=== PATIENT | male | born 1950 | race Caucasian/White ===

== ENCOUNTER 2016-09-28 07:28 | Inpatient (IN) | payer MEDICARE, OTHER ==
[~2016-09-28] VITALS: Ht 175.3 cm; Wt 93.8 kg
[2016-09-28 08:15] LABS: HEMATOCRIT 39.2 % (42.0-52.0); HEMOGLOBIN 14.1 g/dl (13.5-18.0); MEAN CELL VOLUME 91 fl (80.0-100.0); MEAN CORPUSCULAR HEMOGLOBIN 33 pg (27.0-31.0); MEAN CORPUSCULAR HGB CONC 36 g/dl (33.0-37.0); MEAN PLATELET VOLUME 9.6 fl (7.4-10.4); PLATELET COUNT 167 K/mm3 (130-400); RED BLOOD COUNT 4.32 M/mm3 (4.20-5.60); WHITE BLOOD COUNT 4.8 K/mm3 (4.8-10.8)
[2016-09-28 08:19] LABS: ADD PATHOLOGY DIFF REVIEW NO
[2016-09-28 08:21] LABS: PH 8 (5-8); SQUAMOUS EPITHELIAL None Seen /hpf; URINE APPEARANCE Clear; URINE BACTERIA None Seen /hpf; URINE BILIRUBIN Negative (NEGATIVE); URINE BLOOD Negative (NEGATIVE); URINE COLOR Yellow; URINE GLUCOSE Negative (NEGATIVE); URINE KETONE 1+ (NEGATIVE); URINE RBC 0-2 /hpf; URINE UROBILINOGEN Negative (NEGATIVE); URINE WBC 0-2 /hpf
[2016-09-28 08:29] LABS: INFLUENZA B NEGATIVE
[2016-09-28 08:31] LABS: ADJUSTED CALCIUM 9.1 mg/dL (8.4-10.2); ALBUMIN 3.8 gm/dL (3.5-5.0); BILIRUBIN,TOTAL 1.7 mg/dL (0.0-1.0); C-REACTIVE PROTEIN 2.3 mg/dL (0.0-0.9); CALCIUM 8.9 mg/dL (8.4-10.2); CREATININE, serum 0.69 mg/dL (0.66-1.25)
[2016-09-28 08:43] LABS: TROPONIN-I 0.061 ng/mL (0.000-0.034)
[2016-09-28 08:44] LABS: POTASSIUM 2.5 mmol/L (3.4-5.0)
[2016-09-28 08:52] LABS: BAND 2 % (0-10); NEUTROPHILS 60 % (42.0-75.2); TOTAL CELLS COUNTED 100
[2016-09-28] MEDS ORDERED: TOPROL XL 50MG50 MG PO (09:16)
[2016-09-28] MEDS ORDERED: LIPITOR 80MG80 MG PO (09:16)
[2016-09-28] MEDS ORDERED: ZYBAN150 M1 (09:17)
[2016-09-28] MEDS ORDERED: LASIX 40MG TABL40 MG PO (09:18)
[2016-09-28] MEDS ORDERED: ZESTRIL2.5 MG PO (09:19)
[2016-09-28] MEDS ORDERED: KLOR-CON M2020 MEQ PO (09:19)
[2016-09-28] MEDS ORDERED: PLAVIX 75MG TAB75 MG PO (09:19)
[2016-09-28] MEDS ORDERED: NEURONTIN300 MG/CAP PO (09:20)
[2016-09-28] MEDS ORDERED: OXYCONTIN 80MG80 MG PO (09:20)
[2016-09-28] MEDS ORDERED: DESYREL DIVIDO150 M1 PO (09:20)
[2016-09-28] MEDS ORDERED: DAZIDOX20 MG PO (09:20)
[2016-09-28] MEDS ORDERED: ASPIRIN E.C. 8181 MG PO (09:21)
[2016-09-28] MEDS ORDERED: COMPLETE SENIOR1 TA1 PO (09:21)
[2016-09-28 10:52] VITALS: BP 174/86; PULSE 72; TEMP 98.3
[2016-09-28 17:18] VITALS: BP 158/78; PULSE 88; TEMP 98.8
[2016-09-28 19:41] LABS: POTASSIUM 2.5 mmol/L (3.4-5.0)
[2016-09-28 19:45] VITALS: BP 144/82; PULSE 81; TEMP 98.8
[2016-09-28 19:53] LABS: THYROID STIMULATING HORMONE 0.234 uIU/mL (0.465-4.680)
[2016-09-29 00:43] VITALS: BP 147/75; PULSE 71; TEMP 98.1
[2016-09-29 03:37] VITALS: BP 154/85; PULSE 69; TEMP 97.8
[2016-09-29 07:06] LABS: PH 7 (5-8); SQUAMOUS EPITHELIAL None Seen /hpf; URINE APPEARANCE Clear; URINE BACTERIA Rare /hpf; URINE BILIRUBIN Negative (NEGATIVE); URINE BLOOD Negative (NEGATIVE); URINE COLOR Yellow; URINE GLUCOSE Negative (NEGATIVE); URINE KETONE 2+ (NEGATIVE); URINE RBC 0-2 /hpf; URINE UROBILINOGEN >=4.0 mg/dL (NEGATIVE); URINE WBC 0-2 /hpf
[2016-09-29 07:54] VITALS: BP 167/87; PULSE 73; TEMP 98.4
[2016-09-29 11:07] VITALS: BP 125/65; PULSE 62; TEMP 97.8
[2016-09-29 11:15] LABS: ADJUSTED CALCIUM 8.9 mg/dL (8.4-10.2); ALBUMIN 3.7 gm/dL (3.5-5.0); BILIRUBIN,TOTAL 1.6 mg/dL (0.0-1.0); CALCIUM 8.7 mg/dL (8.4-10.2); CREATININE, serum 0.64 mg/dL (0.66-1.25); TOTAL PROTEIN 6.6 gm/dL (6.4-8.2)
[2016-09-29 11:26] LABS: POTASSIUM 2.7 mmol/L (3.4-5.0)
[2016-09-29 11:45] LABS: MAGNESIUM 1.8 mg/dL (1.6-2.3)
[2016-09-29 16:27] VITALS: BP 165/88; PULSE 75; TEMP 98.4
[2016-09-29 19:56] VITALS: BP 144/70; PULSE 65; TEMP 98.7
[2016-09-30 00:40] VITALS: BP 142/68; PULSE 58; TEMP 98.4
[2016-09-30 04:23] VITALS: BP 149/72; PULSE 58; TEMP 98.7
[2016-09-30 08:32] VITALS: BP 144/65; PULSE 59; TEMP 98
[2016-09-30 09:25] LABS: BASO % 0.4 % (0.0-2.0); EOS # 0.1 (0.0-0.7); EOS % 1.1 % (0-4.0); GRAN # 3.2 (1.4-6.5); GRAN % 55.9 % (42.2-75.2); HEMATOCRIT 38.7 % (42.0-52.0); HEMOGLOBIN 13.7 g/dl (13.5-18.0); LYMPH # 1.8 (1.2-3.4); LYMPH % 31.6 % (20.0-51.0); MEAN CELL VOLUME 92 fl (80.0-100.0); MEAN CORPUSCULAR HEMOGLOBIN 33 pg (27.0-31.0); MEAN CORPUSCULAR HGB CONC 35 g/dl (33.0-37.0); MEAN PLATELET VOLUME 9.3 fl (7.4-10.4); MONO # 0.6 (0.1-0.6); MONO % 9.8 % (1.7-9.3); PLATELET COUNT 183 K/mm3 (130-400); RED BLOOD COUNT 4.22 M/mm3 (4.20-5.60); REDCELL DISTRIBUTION WIDTH-CV 12.9 % (11.5-14.5); WHITE BLOOD COUNT 5.7 K/mm3 (4.8-10.8)
[2016-09-30 09:47] LABS: CALCIUM 8.9 mg/dL (8.4-10.2); CREATININE, serum 0.69 mg/dL (0.66-1.25); POTASSIUM 3.2 mmol/L (3.4-5.0)
[2016-09-30 11:21] VITALS: BP 140/60; PULSE 58; TEMP 99
[2016-09-30 12:51] LABS: ADJUSTED CALCIUM 9.4 mg/dL (8.4-10.2); ALBUMIN 3.5 gm/dL (3.5-5.0); BILIRUBIN,TOTAL 1.8 mg/dL (0.0-1.0); CREATININE, serum 0.7 mg/dL (0.66-1.25); POTASSIUM 3.3 mmol/L (3.4-5.0); TOTAL PROTEIN 6.4 gm/dL (6.4-8.2)
[2016-09-30 15:46] VITALS: BP 156/69; PULSE 74; TEMP 98.9
[2016-09-30 20:18] VITALS: BP 169/75; PULSE 60; TEMP 98.5
[2016-10-01 00:01] VITALS: BP 169/84; PULSE 59; TEMP 98.7
[2016-10-01 05:17] VITALS: BP 145/55; PULSE 78; TEMP 98.8
[2016-10-01 09:41] VITALS: BP 147/72; PULSE 68; TEMP 97.4
[2016-10-01 10:00] LABS: BASO % 0.4 % (0.0-2.0); EOS # 0.1 (0.0-0.7); EOS % 1.4 % (0-4.0); GRAN # 3.4 (1.4-6.5); GRAN % 61.1 % (42.2-75.2); HEMATOCRIT 37.6 % (42.0-52.0); HEMOGLOBIN 13.3 g/dl (13.5-18.0); LYMPH # 1.5 (1.2-3.4); LYMPH % 26.6 % (20.0-51.0); MEAN CELL VOLUME 92 fl (80.0-100.0); MEAN CORPUSCULAR HEMOGLOBIN 33 pg (27.0-31.0); MEAN CORPUSCULAR HGB CONC 35 g/dl (33.0-37.0); MEAN PLATELET VOLUME 10.1 fl (7.4-10.4); MONO # 0.5 (0.1-0.6); MONO % 9.1 % (1.7-9.3); PLATELET COUNT 185 K/mm3 (130-400); RED BLOOD COUNT 4.09 M/mm3 (4.20-5.60); REDCELL DISTRIBUTION WIDTH-CV 12.7 % (11.5-14.5); WHITE BLOOD COUNT 5.6 K/mm3 (4.8-10.8)
[2016-10-01 10:06] LABS: POTASSIUM 3.2 mmol/L (3.4-5.0)
[2016-10-01 10:48] LABS: ADJUSTED CALCIUM 9.2 mg/dL (8.4-10.2); ALBUMIN 3.6 gm/dL (3.5-5.0); BILIRUBIN,TOTAL 1.8 mg/dL (0.0-1.0); CALCIUM 8.9 mg/dL (8.4-10.2); CREATININE, serum 0.71 mg/dL (0.66-1.25); TOTAL PROTEIN 6.5 gm/dL (6.4-8.2)
[2016-10-01] MEDS ORDERED: TAMIFLU 75MG75 MG PO (12:06)
[2016-10-01] MEDS ORDERED: PEPCID40 MG PO (12:07)
[2016-10-01] MEDS ORDERED: ZOFRAN ODT4 MG PO (12:08)
[2016-10-01 12:13] VITALS: BP 133/67; PULSE 59; TEMP 98.1
[2016-10-01] MEDS ORDERED: ZESTRIL2.5 MG PO (12:21)
[2016-11-21] MEDS ORDERED: PRINIVIL5 MG PO (09:03)
[2016-11-21] MEDS ORDERED: OXYCONTIN60 MG PO (09:04)
== END 2016-10-01 14:45 | disposition home or self-care (01) | DRG 865 ==
LOC: COL.ER 07:28 → MEDICAL 09:24
PROVIDERS: Internal Medicine; Physician Assistant
DX: J11.2 Influenza due to unidentified influenza virus with gastrointestinal manifestations (principal); I21.4 Non-ST elevation (NSTEMI) myocardial infarction; I25.10 Atherosclerotic heart disease of native coronary artery without angina pectoris; Z95.5 Presence of coronary angioplasty implant and graft; I10 Essential (primary) hypertension; F17.210 Nicotine dependence, cigarettes, uncomplicated; G89.29 Other chronic pain; M54.9 Dorsalgia, unspecified; E87.6 Hypokalemia
CPT/HCPCS: 99222-AI; 99232-AI; 99238; C9113; J0456; J1644; J2270; J2405; J3480; J7030; J7050

== ENCOUNTER 2016-10-14 03:05 | Observation (INO) | payer MEDICARE, OTHER ==
[~2016-10-14] VITALS: Wt 87.9 kg
[~2016-10-14 03:05] MED LIST: ASPIRIN E.C. 8181 MG PO; COMPLETE SENIOR1 TA1 PO; DAZIDOX20 MG PO; DESYREL DIVIDO150 M1 PO; KLOR-CON M2020 MEQ PO; LASIX 40MG TABL40 MG PO; LIPITOR 80MG80 MG PO; NEURONTIN300 MG/CAP PO; OXYCONTIN 80MG80 MG PO; PEPCID40 MG PO; PLAVIX 75MG TAB75 MG PO; TAMIFLU 75MG75 MG PO; TOPROL XL 50MG50 MG PO; ZESTRIL2.5 MG PO; ZOFRAN ODT4 MG PO; ZYBAN150 M1
[2016-10-14 03:33] LABS: BASO % 0.5 % (0.0-2.0); EOS # 0.1 (0.0-0.7); EOS % 0.8 % (0-4.0); GRAN # 5.8 (1.4-6.5); GRAN % 74.8 % (42.2-75.2); HEMATOCRIT 45.5 % (42.0-52.0); HEMOGLOBIN 16.6 g/dl (13.5-18.0); LYMPH # 1.2 (1.2-3.4); LYMPH % 15.7 % (20.0-51.0); MEAN CELL VOLUME 91 fl (80.0-100.0); MEAN CORPUSCULAR HEMOGLOBIN 33 pg (27.0-31.0); MEAN CORPUSCULAR HGB CONC 37 g/dl (33.0-37.0); MEAN PLATELET VOLUME 9.7 fl (7.4-10.4); MONO # 0.6 (0.1-0.6); MONO % 8.1 % (1.7-9.3); PLATELET COUNT 218 K/mm3 (130-400); RED BLOOD COUNT 4.99 M/mm3 (4.20-5.60); REDCELL DISTRIBUTION WIDTH-CV 12.2 % (11.5-14.5); WHITE BLOOD COUNT 7.8 K/mm3 (4.8-10.8)
[2016-10-14 03:45] LABS: ADJUSTED CALCIUM 9.8 mg/dL (8.4-10.2); ALANINE AMINOTRANSFERASE 47 U/L (21-72); ALBUMIN 4.5 gm/dL (3.5-5.0); ALKALINE PHOSPHATASE 119 U/L (50-136); ANION GAP 14 mmol/L (7-16); BILIRUBIN,TOTAL 2.4 mg/dL (0.0-1.0); BLOOD UREA NITROGEN 11 mg/dL (9-20); CALCIUM 10.2 mg/dL (8.4-10.2); CARBON DIOXIDE 24 mmol/L (22-30); CHLORIDE 99 mmol/L (98-107); CREATININE, serum 0.87 mg/dL (0.66-1.25); GLUCOSE 117 mg/dL (74-106); POTASSIUM 3.5 mmol/L (3.4-5.0); SODIUM 137 mmol/L (137-145); TOTAL PROTEIN 8.1 gm/dL (6.4-8.2)
[2016-10-14] MEDS ORDERED: PRINIVIL2.5 MG PO (03:45)
[2016-10-14] MEDS ORDERED: MAG-OX 400400 MG/TAB PO (03:46)
[2016-10-14] MEDS ORDERED: CENTRUM SILVER1 TAB PO (03:47)
[2016-10-14 03:48] LABS: INFLUENZA B NEGATIVE
[2016-10-14 05:23] LABS: PH 7 (5-8); SQUAMOUS EPITHELIAL None Seen /hpf; URINE APPEARANCE Clear; URINE BACTERIA None Seen /hpf; URINE BILIRUBIN Negative (NEGATIVE); URINE BLOOD Negative (NEGATIVE); URINE COLOR Yellow; URINE GLUCOSE Negative (NEGATIVE); URINE KETONE 1+ (NEGATIVE); URINE RBC 0-2 /hpf; URINE UROBILINOGEN Negative (NEGATIVE); URINE WBC 0-2 /hpf
[2016-10-14 05:29] VITALS: BP 180/87; PULSE 91; TEMP 99
[2016-10-14 07:55] LABS: C-REACTIVE PROTEIN < 0.5 mg/dL (0.0-0.9)
[2016-10-14 08:43] VITALS: BP 187/100; PULSE 76; TEMP 98.4
[2016-10-14 10:16] LABS: TROPONIN-I < 0.012 ng/mL (0.000-0.034)
[2016-10-14 11:58] VITALS: BP 147/74; PULSE 98; TEMP 98
[2016-10-14 16:56] VITALS: BP 161/88; PULSE 94; TEMP 98.2
[2016-10-14 19:45] VITALS: BP 178/88; PULSE 103; TEMP 98.1
[2016-10-15 00:41] VITALS: BP 164/81; PULSE 97; TEMP 98.6
[2016-10-15 03:42] VITALS: BP 155/93; PULSE 86; TEMP 97.7
[2016-10-15 08:20] LABS: BASO % 0.2 % (0.0-2.0); EOS % 0.1 % (0-4.0); GRAN # 5.5 (1.4-6.5); HEMATOCRIT 43.1 % (42.0-52.0); HEMOGLOBIN 15.4 g/dl (13.5-18.0); LYMPH # 1.8 (1.2-3.4); LYMPH % 21.5 % (20.0-51.0); MEAN CELL VOLUME 92 fl (80.0-100.0); MEAN CORPUSCULAR HEMOGLOBIN 33 pg (27.0-31.0); MEAN CORPUSCULAR HGB CONC 36 g/dl (33.0-37.0); MONO # 0.9 (0.1-0.6); PLATELET COUNT 184 K/mm3 (130-400); REDCELL DISTRIBUTION WIDTH-CV 12.2 % (11.5-14.5); WHITE BLOOD COUNT 8.3 K/mm3 (4.8-10.8)
[2016-10-15 08:34] LABS: BILIRUBIN,TOTAL 2.3 mg/dL (0.0-1.0); CREATININE, serum 0.68 mg/dL (0.66-1.25)
[2016-10-15 08:42] VITALS: BP 143/85; PULSE 82; TEMP 98.3
[2016-10-15 08:45] LABS: POTASSIUM 2.9 mmol/L (3.4-5.0)
[2016-10-15 12:01] VITALS: BP 141/78; PULSE 72; TEMP 97.4
[2016-10-15 15:43] VITALS: BP 169/87; PULSE 82; TEMP 98.4
[2016-10-15] MEDS ORDERED: REGLAN 10MG10 MG/TAB PO (19:23)
[2016-10-15] MEDS ORDERED: PROTONIX 40MG T40 MG PO (19:27)
[2016-11-21] MEDS ORDERED: PRINIVIL5 MG PO (09:03)
[2016-11-21] MEDS ORDERED: OXYCONTIN60 MG PO (09:04)
== END 2016-10-15 20:03 | disposition home or self-care (01) ==
LOC: COL.ER 03:05 → MEDICAL 03:52
PROVIDERS: Family Medicine; Nurse Practitioner Family
DX: R11.2 Nausea with vomiting, unspecified (principal); R19.7 Diarrhea, unspecified; K92.0 Hematemesis; I25.10 Atherosclerotic heart disease of native coronary artery without angina pectoris; I10 Essential (primary) hypertension; G89.29 Other chronic pain; Z80.0 Family history of malignant neoplasm of digestive organs
CPT/HCPCS: G0378; J0360; J1170; J1650; J2405; J2550; J7030

== ENCOUNTER 2016-10-17 12:53 | Day surgery (SDC) | payer MEDICARE, OTHER ==
[~2016-10-17] VITALS: Ht 175.3 cm; Wt 89.5 kg
[~2016-10-17 12:53] MED LIST changes: +CENTRUM SILVER1 TAB PO; +MAG-OX 400400 MG/TAB PO; +PRINIVIL2.5 MG PO; +PROTONIX 40MG T40 MG PO; +REGLAN 10MG10 MG/TAB PO
[2016-10-17] MEDS ORDERED: MELATONIN5 M1 SL (13:23)
[2016-10-17] MEDS ORDERED: COMPLETE SENIOR1 TA1 PO (13:24)
[2016-10-17 13:43] VITALS: BP 152/104; PULSE 86; TEMP 98.6
[2016-10-17] MEDS ORDERED: DULCOLAX STOOL100 MG PO (13:53)
[2016-10-17 15:02] VITALS: BP 141/88; PULSE 77; TEMP 97.9
[2016-10-17] MEDS ORDERED: PROTONIX 40MG T40 MG PO (15:27)
[2016-10-17 15:30] VITALS: BP 148/85; PULSE 77
[2016-10-17 15:41] VITALS: BP 144/88; PULSE 81
[2016-10-17 16:29] VITALS: BP 152/95; PULSE 80
[2016-11-21] MEDS ORDERED: PRINIVIL5 MG PO (09:03)
[2016-11-21] MEDS ORDERED: OXYCONTIN60 MG PO (09:04)
== END 2016-10-17 16:42 | disposition home or self-care (01) ==
LOC: SDCO 12:53
DX: K21.0 Gastro-esophageal reflux disease with esophagitis (principal); R11.2 Nausea with vomiting, unspecified; K30 Functional dyspepsia; K29.50 Unspecified chronic gastritis without bleeding
CPT/HCPCS: OP; J2250; J2405; J3010; J7030

== ENCOUNTER 2016-11-25 07:35 | Outpatient (CLI) | payer MEDICARE, OTHER ==
[~2016-11-25] VITALS: Ht 175.3 cm; Wt 90.8 kg
[~2016-11-25 07:35] MED LIST changes: +DULCOLAX STOOL100 MG PO; +MELATONIN5 M1 SL; +OXYCONTIN60 MG PO; +PRINIVIL5 MG PO
[2016-11-25 08:01] VITALS: BP 97/59; PULSE 46
[2016-11-25 10:30] VITALS: BP 97/59; PULSE 46
[2016-11-25 10:35] VITALS: BP 104/53; PULSE 55
[2016-11-25 11:14] VITALS: BP 128/63; PULSE 42
== END 2016-11-25 11:15 | disposition home or self-care (01) ==
LOC: COL.RAD 07:35
DX: M50.121 Cervical disc disorder at C4-C5 level with radiculopathy (principal); M51.16 Intervertebral disc disorders with radiculopathy, lumbar region
CPT/HCPCS: Q9967

== ENCOUNTER → 2016-12-23 | Outpatient (CLI) | payer MEDICARE, OTHER | LOC: MHCPAIN 09:01 | DX: G89.29 Other chronic pain (principal); M47.27 Other spondylosis with radiculopathy, lumbosacral region; M53.3 Sacrococcygeal disorders, not elsewhere classified; M96.1 Postlaminectomy syndrome, not elsewhere classified; M47.22 Other spondylosis with radiculopathy, cervical region; F11.20 Opioid dependence, uncomplicated | CPT/HCPCS: G0463 ==

== ENCOUNTER → 2017-01-30 | Outpatient (CLI) | payer MEDICARE, OTHER | LOC: MHCPAIN 09:51 | DX: G89.29 Other chronic pain (principal); M47.817 Spondylosis without myelopathy or radiculopathy, lumbosacral region; M54.16 Radiculopathy, lumbar region; M53.3 Sacrococcygeal disorders, not elsewhere classified; M96.1 Postlaminectomy syndrome, not elsewhere classified; M50.90 Cervical disc disorder, unspecified, unspecified cervical region; M54.12 Radiculopathy, cervical region | CPT/HCPCS: G0463 ==

== ENCOUNTER → 2017-02-03 | Outpatient (CLI) | payer MEDICARE, OTHER | LOC: MHCPAIN 10:37 | DX: Z01.89 Encounter for other specified special examinations (principal) ==

== ENCOUNTER → 2017-03-01 | Outpatient (CLI) | payer MEDICARE, OTHER | LOC: MHCPAIN 07:59 | DX: G89.29 Other chronic pain (principal); M47.817 Spondylosis without myelopathy or radiculopathy, lumbosacral region; M54.16 Radiculopathy, lumbar region; M53.3 Sacrococcygeal disorders, not elsewhere classified; M50.90 Cervical disc disorder, unspecified, unspecified cervical region; M54.12 Radiculopathy, cervical region; M96.1 Postlaminectomy syndrome, not elsewhere classified; F17.210 Nicotine dependence, cigarettes, uncomplicated | CPT/HCPCS: G0463 ==

== ENCOUNTER → 2017-04-05 | Outpatient (CLI) | payer MEDICARE, OTHER | LOC: MHCPAIN 08:01 | DX: G89.29 Other chronic pain (principal); M47.27 Other spondylosis with radiculopathy, lumbosacral region; M96.1 Postlaminectomy syndrome, not elsewhere classified; F17.210 Nicotine dependence, cigarettes, uncomplicated; Z79.02 Long term (current) use of antithrombotics/antiplatelets; Z79.82 Long term (current) use of aspirin | CPT/HCPCS: G0463 ==

== ENCOUNTER → 2017-04-19 | Outpatient (CLI) | payer MEDICARE, OTHER | LOC: MHCPAIN 10:27 | DX: G89.29 Other chronic pain (principal); M96.1 Postlaminectomy syndrome, not elsewhere classified; M47.27 Other spondylosis with radiculopathy, lumbosacral region; F17.210 Nicotine dependence, cigarettes, uncomplicated; Z79.82 Long term (current) use of aspirin | CPT/HCPCS: G0463 ==

== ENCOUNTER → 2017-05-01 | Outpatient (CLI) | payer MEDICARE, OTHER | LOC: MHCPAIN 10:35 | DX: G89.29 Other chronic pain (principal); M47.27 Other spondylosis with radiculopathy, lumbosacral region; M53.3 Sacrococcygeal disorders, not elsewhere classified; M96.1 Postlaminectomy syndrome, not elsewhere classified; F17.210 Nicotine dependence, cigarettes, uncomplicated; Z79.02 Long term (current) use of antithrombotics/antiplatelets; Z79.82 Long term (current) use of aspirin | CPT/HCPCS: G0463 ==

== ENCOUNTER → 2017-05-30 | Outpatient (CLI) | payer MEDICARE, OTHER | LOC: MHCPAIN 10:17 | DX: G89.29 Other chronic pain (principal); M47.27 Other spondylosis with radiculopathy, lumbosacral region; M53.3 Sacrococcygeal disorders, not elsewhere classified; M96.1 Postlaminectomy syndrome, not elsewhere classified; F17.210 Nicotine dependence, cigarettes, uncomplicated; Z79.82 Long term (current) use of aspirin | CPT/HCPCS: G0463 ==

== ENCOUNTER → 2017-06-28 | Outpatient (CLI) | payer MEDICARE, OTHER | LOC: MHCPAIN 07:39 | DX: G89.29 Other chronic pain (principal); M47.27 Other spondylosis with radiculopathy, lumbosacral region; M96.1 Postlaminectomy syndrome, not elsewhere classified; F17.210 Nicotine dependence, cigarettes, uncomplicated; Z79.82 Long term (current) use of aspirin; Z79.02 Long term (current) use of antithrombotics/antiplatelets | CPT/HCPCS: G0463 ==

== ENCOUNTER → 2017-07-28 | Outpatient (CLI) | payer MEDICARE, OTHER | LOC: MHCPAIN 09:46 | DX: G89.29 Other chronic pain (principal); M47.27 Other spondylosis with radiculopathy, lumbosacral region; M53.3 Sacrococcygeal disorders, not elsewhere classified; M96.1 Postlaminectomy syndrome, not elsewhere classified; F17.210 Nicotine dependence, cigarettes, uncomplicated | CPT/HCPCS: G0463 ==

== ENCOUNTER → 2017-08-28 | Outpatient (CLI) | payer MEDICARE, OTHER | LOC: MHCPAIN 08:58 | DX: G89.29 Other chronic pain (principal); M47.27 Other spondylosis with radiculopathy, lumbosacral region; M53.3 Sacrococcygeal disorders, not elsewhere classified; M96.1 Postlaminectomy syndrome, not elsewhere classified; F17.210 Nicotine dependence, cigarettes, uncomplicated | CPT/HCPCS: G0463 ==

== ENCOUNTER → 2017-09-26 | Outpatient (CLI) | payer MEDICARE, OTHER | LOC: MHCPAIN 10:09 | DX: G89.29 Other chronic pain (principal); M47.27 Other spondylosis with radiculopathy, lumbosacral region; M53.3 Sacrococcygeal disorders, not elsewhere classified; M96.1 Postlaminectomy syndrome, not elsewhere classified; F17.210 Nicotine dependence, cigarettes, uncomplicated | CPT/HCPCS: G0463 ==

== ENCOUNTER → 2017-10-23 | Outpatient (CLI) | payer MEDICARE, OTHER | LOC: MHCPAIN 08:42 | DX: G89.29 Other chronic pain (principal); M47.817 Spondylosis without myelopathy or radiculopathy, lumbosacral region; M54.16 Radiculopathy, lumbar region; M53.3 Sacrococcygeal disorders, not elsewhere classified; M96.1 Postlaminectomy syndrome, not elsewhere classified | CPT/HCPCS: G0463 ==

== ENCOUNTER → 2017-11-20 | Outpatient (CLI) | payer MEDICARE, OTHER | LOC: MHCPAIN 08:35 | DX: G89.29 Other chronic pain (principal); M47.817 Spondylosis without myelopathy or radiculopathy, lumbosacral region; M54.16 Radiculopathy, lumbar region; M53.3 Sacrococcygeal disorders, not elsewhere classified; M96.1 Postlaminectomy syndrome, not elsewhere classified | CPT/HCPCS: G0463 ==

== ENCOUNTER → 2017-12-19 | Outpatient (CLI) | payer MEDICARE, OTHER | LOC: MHCPAIN 09:04 | DX: G89.29 Other chronic pain (principal); M47.817 Spondylosis without myelopathy or radiculopathy, lumbosacral region; M54.16 Radiculopathy, lumbar region; M53.3 Sacrococcygeal disorders, not elsewhere classified; M96.1 Postlaminectomy syndrome, not elsewhere classified | CPT/HCPCS: G0463 ==

== ENCOUNTER → 2018-02-16 | Outpatient (CLI) | payer MEDICARE, OTHER | LOC: MHCPAIN 09:49 | DX: G89.29 Other chronic pain (principal); M47.817 Spondylosis without myelopathy or radiculopathy, lumbosacral region; M54.16 Radiculopathy, lumbar region; M53.3 Sacrococcygeal disorders, not elsewhere classified; M96.1 Postlaminectomy syndrome, not elsewhere classified | CPT/HCPCS: G0463 ==

== ENCOUNTER → 2018-04-17 | Outpatient (CLI) | payer MEDICARE, OTHER | LOC: MHCPAIN 09:36 | DX: G89.29 Other chronic pain (principal); M47.817 Spondylosis without myelopathy or radiculopathy, lumbosacral region; M54.16 Radiculopathy, lumbar region; M53.3 Sacrococcygeal disorders, not elsewhere classified; M96.1 Postlaminectomy syndrome, not elsewhere classified | CPT/HCPCS: G0463 ==

== ENCOUNTER → 2018-06-13 | Outpatient (CLI) | payer MEDICARE, OTHER | LOC: MHCPAIN 09:51 | DX: G89.29 Other chronic pain (principal); M47.817 Spondylosis without myelopathy or radiculopathy, lumbosacral region; M54.16 Radiculopathy, lumbar region; M53.3 Sacrococcygeal disorders, not elsewhere classified; M96.1 Postlaminectomy syndrome, not elsewhere classified | CPT/HCPCS: G0463 ==

== ENCOUNTER 2018-07-24 08:12 | Day surgery (SDC) | payer MEDICARE, OTHER ==
[2018-07-24] VITALS (7 sets, daily range): BP systolic 85–129; BP diastolic 48–71; PULSE 51–72; TEMP 97.6–97.9
[~2018-07-24] VITALS: Ht 175.3 cm; Wt 97.9 kg
[~2018-07-24 08:12] MED LIST changes: +MELATONIN5 M1 PO; -MELATONIN5 M1 SL; +MULTIVITAMIN SEN PO
[2018-07-24] MEDS ORDERED: PRINIVIL20 MG PO (08:59)
[2018-07-24] MEDS ORDERED: NITROSTAT0.4 MG/TAB SL (09:02)
[2018-07-24] MEDS ORDERED: DAZIDOX10 MG PO (09:03)
[2018-07-24] MEDS ORDERED: OXYCONTIN40 MG PO (09:03)
[2018-07-24] MEDS ORDERED: SENOKOT S 50 MG1 TAB PO (09:05)
[2018-07-24] MEDS ORDERED: ADVIL200 MG PO (09:06)
[2018-07-24 09:14] LABS: HEMOGLOBIN 14.1 g/dl (13.5-18.0); MEAN CELL VOLUME 93 fl (80.0-100.0); MEAN CORPUSCULAR HEMOGLOBIN 33 pg (27.0-31.0); MEAN CORPUSCULAR HGB CONC 35 g/dl (33.0-37.0); MEAN PLATELET VOLUME 9.2 fl (7.4-10.4); PLATELET COUNT 160 K/mm3 (130-400); REDCELL DISTRIBUTION WIDTH-CV 11.7 % (11.5-14.5)
[2018-07-24 09:23] LABS: CALCIUM 9.2 mg/dL (8.4-10.2); CREATININE, serum 0.91 mg/dL (0.66-1.25); POTASSIUM 4.4 mmol/L (3.4-5.0)
[2018-07-24 09:24] LABS: PROTHROMBIN TIME 11.3 SECONDS (9.7-12.8)
[2018-07-25 00:41] VITALS: BP 112/40; PULSE 55; TEMP 97.6
[2018-07-25 05:50] VITALS: PULSE 86
[2018-07-25 07:41] VITALS: BP 96/47; PULSE 62; TEMP 97.9
[2018-07-25] MEDS ORDERED: CLEOCIN HCL300 MG PO (11:07)
== END 2018-07-25 12:04 | disposition home or self-care (01) ==
LOC: COL.CAR 08:12 → MEDICAL 12:31 → COL.CAR 07-25 12:04
PROVIDERS: Internal Medicine Cardiovascular Disease
DX: R42 Dizziness and giddiness (principal); Z88.0 Allergy status to penicillin; I25.10 Atherosclerotic heart disease of native coronary artery without angina pectoris; I25.2 Old myocardial infarction; I10 Essential (primary) hypertension; E78.5 Hyperlipidemia, unspecified; E11.9 Type 2 diabetes mellitus without complications; Z87.891 Personal history of nicotine dependence; Z95.5 Presence of coronary angioplasty implant and graft; D69.6 Thrombocytopenia, unspecified; Z79.82 Long term (current) use of aspirin; Z79.02 Long term (current) use of antithrombotics/antiplatelets; Z68.31 Body mass index [BMI] 31.0-31.9, adult
CPT/HCPCS: OP; C1785; C1894; C1898; J0690; J2250; J3010; J7030; Q9967

== ENCOUNTER → 2018-08-07 | Outpatient (CLI) | payer MEDICARE, OTHER ==
[~2018-08-07] MED LIST changes: +ADVIL200 MG PO; +CLEOCIN HCL300 MG PO; +DAZIDOX10 MG PO; +NITROSTAT0.4 MG/TAB SL; +OXYCONTIN40 MG PO; +PRINIVIL20 MG PO; +SENOKOT S 50 MG1 TAB PO
== END ==
LOC: MHCPAIN 09:48
DX: G89.29 Other chronic pain (principal); M47.817 Spondylosis without myelopathy or radiculopathy, lumbosacral region; M54.16 Radiculopathy, lumbar region; M53.3 Sacrococcygeal disorders, not elsewhere classified; M96.1 Postlaminectomy syndrome, not elsewhere classified
CPT/HCPCS: G0463

== ENCOUNTER → 2018-10-03 | Outpatient (CLI) | payer MEDICARE, OTHER | LOC: MHCPAIN 09:35 | DX: G89.29 Other chronic pain (principal); M47.817 Spondylosis without myelopathy or radiculopathy, lumbosacral region; M54.16 Radiculopathy, lumbar region; M53.3 Sacrococcygeal disorders, not elsewhere classified; M96.1 Postlaminectomy syndrome, not elsewhere classified | CPT/HCPCS: G0463 ==

== ENCOUNTER → 2018-12-31 | Outpatient (CLI) | payer MEDICARE, OTHER | LOC: MHCPAIN 10:00 | DX: G89.29 Other chronic pain (principal); M47.817 Spondylosis without myelopathy or radiculopathy, lumbosacral region; M54.16 Radiculopathy, lumbar region; M53.3 Sacrococcygeal disorders, not elsewhere classified; M96.1 Postlaminectomy syndrome, not elsewhere classified | CPT/HCPCS: G0463 ==

== ENCOUNTER → 2019-07-03 | Outpatient (CLI) | payer MEDICARE, OTHER | LOC: MHCPAIN 09:45 | DX: G89.29 Other chronic pain (principal); M96.1 Postlaminectomy syndrome, not elsewhere classified; M53.3 Sacrococcygeal disorders, not elsewhere classified | CPT/HCPCS: G0463 ==

== ENCOUNTER → 2019-09-25 | Outpatient (CLI) | payer MEDICARE, OTHER | LOC: MHCPAIN 09:45 | DX: M53.3 Sacrococcygeal disorders, not elsewhere classified (principal); M54.16 Radiculopathy, lumbar region; M47.27 Other spondylosis with radiculopathy, lumbosacral region; M96.1 Postlaminectomy syndrome, not elsewhere classified | CPT/HCPCS: G0463 ==

== ENCOUNTER → 2020-01-22 | Outpatient (CLI) | payer MEDICARE, OTHER | LOC: MHCPAIN 09:00 | DX: M47.817 Spondylosis without myelopathy or radiculopathy, lumbosacral region (principal); M96.1 Postlaminectomy syndrome, not elsewhere classified; M54.5 Low back pain; M53.3 Sacrococcygeal disorders, not elsewhere classified; G89.29 Other chronic pain | CPT/HCPCS: G0463 ==

== ENCOUNTER → 2020-02-13 | Outpatient (CLI) | payer MEDICARE, OTHER | LOC: COL.RAD 10:05 | DX: Z96.89 Presence of other specified functional implants (principal); Z95.0 Presence of cardiac pacemaker ==

== ENCOUNTER → 2020-04-22 | Outpatient (CLI) | payer MEDICARE, OTHER | LOC: MHCPAIN 09:08 | DX: M47.817 Spondylosis without myelopathy or radiculopathy, lumbosacral region (principal); M54.5 Low back pain; M96.1 Postlaminectomy syndrome, not elsewhere classified; G89.29 Other chronic pain; R00.0 Tachycardia, unspecified | CPT/HCPCS: G0463 ==

== ENCOUNTER → 2020-07-14 | Outpatient (CLI) | payer MEDICARE, OTHER | LOC: MHCPAIN 14:43 | DX: M47.812 Spondylosis without myelopathy or radiculopathy, cervical region (principal); M47.817 Spondylosis without myelopathy or radiculopathy, lumbosacral region; G89.29 Other chronic pain; M53.3 Sacrococcygeal disorders, not elsewhere classified; M54.5 Low back pain | CPT/HCPCS: G0463 ==

== ENCOUNTER 2020-08-06 11:30 | Outpatient (RCR) | payer MEDICARE, OTHER | END 2020-08-24 | disposition home or self-care (01) | LOC: WSC | DX: M47.819 Spondylosis without myelopathy or radiculopathy, site unspecified (principal) ==

== ENCOUNTER → 2020-10-13 | Outpatient (CLI) | payer MEDICARE, OTHER ==
[~2020-10-13] MED LIST changes: +AMBIEN CR6.25 MG PO; +FLOMAX 0.40.4 MG/CAP PO; +LIPITOR 40MG TA40 MG PO; +PRINIVIL10 MG PO; +TOPROL XL 25MG25 MG PO
== END ==
LOC: MHCPAIN 09:52
DX: M47.817 Spondylosis without myelopathy or radiculopathy, lumbosacral region (principal); M54.16 Radiculopathy, lumbar region; M96.1 Postlaminectomy syndrome, not elsewhere classified; G89.29 Other chronic pain
CPT/HCPCS: G0463

== ENCOUNTER → 2020-12-09 | Outpatient (CLI) | payer MEDICARE, OTHER | LOC: MHCPAIN 10:17 | DX: M47.816 Spondylosis without myelopathy or radiculopathy, lumbar region (principal); M96.1 Postlaminectomy syndrome, not elsewhere classified; M54.16 Radiculopathy, lumbar region; G89.29 Other chronic pain | CPT/HCPCS: G0463 ==

== ENCOUNTER → 2021-03-08 | Outpatient (CLI) | payer MEDICARE, OTHER | LOC: MHCPAIN 13:36 | DX: M47.816 Spondylosis without myelopathy or radiculopathy, lumbar region (principal); M96.1 Postlaminectomy syndrome, not elsewhere classified; M54.5 Low back pain | CPT/HCPCS: G0463 ==

== ENCOUNTER 2021-04-06 11:15 | Outpatient (RCR) | payer MEDICARE, OTHER ==
[~2021-04-06 11:15] MED LIST changes: -AMBIEN CR6.25 MG PO; -FLOMAX 0.40.4 MG/CAP PO; -LIPITOR 40MG TA40 MG PO; -PRINIVIL10 MG PO; -TOPROL XL 25MG25 MG PO
[2021-05-07] MEDS ORDERED: LIPITOR 40MG TA40 MG PO (11:19)
[2021-05-07] MEDS ORDERED: PRINIVIL10 MG PO (11:20)
[2021-05-07] MEDS ORDERED: TOPROL XL 25MG25 MG PO (11:22)
[2021-05-07] MEDS ORDERED: FLOMAX 0.40.4 MG/CAP PO (11:22)
[2021-05-07] MEDS ORDERED: AMBIEN CR6.25 MG PO (11:24)
== END 2021-06-01 | disposition home or self-care (01) ==
LOC: WSPT
DX: M47.896 Other spondylosis, lumbar region (principal)

== ENCOUNTER 2021-05-07 09:45 | Day surgery (SDC) | payer MEDICARE, OTHER ==
[~2021-05-07] VITALS: Ht 172.7 cm; Wt 103.9 kg
[2021-05-07 10:55] VITALS: BP 105/73; PULSE 64; TEMP 97.7
[2021-05-07] MEDS ORDERED: LIPITOR 40MG TA40 MG PO (11:19)
[2021-05-07] MEDS ORDERED: PRINIVIL10 MG PO (11:20)
[2021-05-07] MEDS ORDERED: FLOMAX 0.40.4 MG/CAP PO (11:22)
[2021-05-07] MEDS ORDERED: TOPROL XL 25MG25 MG PO (11:22)
[2021-05-07] MEDS ORDERED: AMBIEN CR6.25 MG PO (11:24)
[2021-05-07 15:35] VITALS: BP 126/68; PULSE 69; TEMP 97.2
--- NOTE | 2021-05-07 15:35 | NUR ---
Patient returned to [place] [facility] via cart. Asleep, wakes easily to name. April hugger in place for decreased temp while in PACU. Postop vitals started. Patient resting semi robertson, bedrails up, call light in reach.
[2021-05-07 15:50] VITALS: BP 114/66; PULSE 60; TEMP 97.4
--- NOTE | 2021-05-07 15:50 | NUR ---
Patient resting semi fowlers. Asleep, wakes easily when entering room. Vitals stable. Grape juice and muffin provided.
[2021-05-07 16:05] VITALS: BP 125/68; PULSE 64
--- NOTE | 2021-05-07 16:05 | NUR ---
Patient sitting high fowlers in bed. Tolerating food and drink well. Vitals stable. Reported pain 2/10, no pain medication requested.
--- NOTE | 2021-05-07 17:20 | NUR ---
Patient up to restroom, able to void. Discontinue IV without complications. Reviewed discharge instructions and education material, verbalized understanding. Instructed to dress and open door when ready for discharge home
--- NOTE | 2021-05-07 17:30 | NUR ---
Patient trasnfered to personal vehicle to be driven home by daughter in law.
== END 2021-05-07 17:30 | disposition home or self-care (01) ==
LOC: SDCO 09:45
DX: K40.91 Unilateral inguinal hernia, without obstruction or gangrene, recurrent (principal); I10 Essential (primary) hypertension; I25.10 Atherosclerotic heart disease of native coronary artery without angina pectoris; I25.2 Old myocardial infarction; E78.5 Hyperlipidemia, unspecified; K21.9 Gastro-esophageal reflux disease without esophagitis; G89.29 Other chronic pain; M54.9 Dorsalgia, unspecified; Z20.822 Contact with and (suspected) exposure to COVID-19; Z95.1 Presence of aortocoronary bypass graft; Z79.82 Long term (current) use of aspirin; Z79.899 Other long term (current) drug therapy; Z87.891 Personal history of nicotine dependence; Z68.33 Body mass index [BMI] 33.0-33.9, adult; Z79.02 Long term (current) use of antithrombotics/antiplatelets; Z80.0 Family history of malignant neoplasm of digestive organs
CPT/HCPCS: C1781; J0690; J1100; J2405; J2704; J3010; J7120

== ENCOUNTER → 2021-06-08 | Outpatient (CLI) | payer MEDICARE, OTHER ==
[~2021-06-08] MED LIST changes: +AMBIEN CR6.25 MG PO; +FLOMAX 0.40.4 MG/CAP PO; +LIPITOR 40MG TA40 MG PO; +PRINIVIL10 MG PO; +TOPROL XL 25MG25 MG PO
== END ==
LOC: MHCPAIN 10:46
DX: M54.12 Radiculopathy, cervical region (principal); M54.16 Radiculopathy, lumbar region; M53.3 Sacrococcygeal disorders, not elsewhere classified; G89.29 Other chronic pain
CPT/HCPCS: G0463

== ENCOUNTER → 2021-09-01 | Outpatient (CLI) | payer MEDICARE, OTHER | LOC: MHCPAIN 10:58 | DX: M47.896 Other spondylosis, lumbar region (principal); M54.16 Radiculopathy, lumbar region; M96.1 Postlaminectomy syndrome, not elsewhere classified; M79.2 Neuralgia and neuritis, unspecified | CPT/HCPCS: G0463 ==

== ENCOUNTER → 2021-10-05 | Outpatient (CLI) | payer MEDICARE, OTHER | LOC: MHCPAIN 14:25 | DX: M47.896 Other spondylosis, lumbar region (principal); M54.16 Radiculopathy, lumbar region; M96.1 Postlaminectomy syndrome, not elsewhere classified; G89.29 Other chronic pain | CPT/HCPCS: G0463 ==

== ENCOUNTER → 2021-12-13 | Outpatient (CLI) | payer MEDICARE, OTHER | LOC: MHCPAIN 09:51 | DX: M54.16 Radiculopathy, lumbar region (principal); M47.896 Other spondylosis, lumbar region; M96.1 Postlaminectomy syndrome, not elsewhere classified; G89.29 Other chronic pain | CPT/HCPCS: G0463 ==

== ENCOUNTER 2022-02-15 13:30 | Outpatient (RCR) | payer MEDICARE, OTHER | END 2022-02-17 | disposition home or self-care (01) | LOC: WSC | DX: M96.1 Postlaminectomy syndrome, not elsewhere classified (principal) ==

== ENCOUNTER 2022-03-01 11:15 | Outpatient (RCR) | payer MEDICARE, OTHER | END 2022-03-20 | disposition home or self-care (01) | LOC: WSPT | DX: M96.1 Postlaminectomy syndrome, not elsewhere classified (principal) ==

== ENCOUNTER → 2022-03-15 | Outpatient (CLI) | payer MEDICARE, OTHER | LOC: MHCPAIN 10:05 | DX: M53.3 Sacrococcygeal disorders, not elsewhere classified (principal); M47.897 Other spondylosis, lumbosacral region; M54.16 Radiculopathy, lumbar region; M96.1 Postlaminectomy syndrome, not elsewhere classified | CPT/HCPCS: G0463 ==

== ENCOUNTER → 2022-03-24 | Outpatient (CLI) | payer MEDICARE, OTHER | LOC: MHCPAIN 10:32 | DX: M47.817 Spondylosis without myelopathy or radiculopathy, lumbosacral region (principal); M53.3 Sacrococcygeal disorders, not elsewhere classified | CPT/HCPCS: G0260; J1040; Q9967 ==

== ENCOUNTER → 2022-06-27 | Outpatient (CLI) | payer MEDICARE, OTHER | LOC: MHCPAIN 07:53 | DX: M54.12 Radiculopathy, cervical region (principal); M54.16 Radiculopathy, lumbar region; M96.1 Postlaminectomy syndrome, not elsewhere classified; M53.3 Sacrococcygeal disorders, not elsewhere classified | CPT/HCPCS: G0463 ==

== ENCOUNTER → 2022-10-05 | Outpatient (CLI) | payer MEDICARE, OTHER | LOC: MHCPAIN 09:50 | DX: M54.12 Radiculopathy, cervical region (principal); M54.16 Radiculopathy, lumbar region; M96.1 Postlaminectomy syndrome, not elsewhere classified; G89.29 Other chronic pain | CPT/HCPCS: G0463 ==

== ENCOUNTER → 2022-12-27 | Outpatient (CLI) | payer MEDICARE, OTHER | LOC: MHCPAIN 11:02 | DX: M47.896 Other spondylosis, lumbar region (principal); M54.16 Radiculopathy, lumbar region; M79.2 Neuralgia and neuritis, unspecified | CPT/HCPCS: G0463 ==

== ENCOUNTER 2023-05-04 11:15 | Outpatient (RCR) | payer MEDICARE, OTHER | END 2023-05-20 | disposition home or self-care (01) | LOC: WSPT | DX: R29.6 Repeated falls (principal) ==

== ENCOUNTER → 2023-09-18 | Outpatient (CLI) | payer MEDICARE, OTHER | LOC: MHCPAIN 09:49 | DX: M47.896 Other spondylosis, lumbar region (principal); M54.16 Radiculopathy, lumbar region; M96.1 Postlaminectomy syndrome, not elsewhere classified; M79.2 Neuralgia and neuritis, unspecified | CPT/HCPCS: G0463 ==